=== PATIENT | female | born 1995 | race Caucasian/White ===

== ENCOUNTER → 2023-12-09 15:16 | Outpatient (CLI) | payer BC, SELFPAY ==
--- NOTE | 2023-12-09 15:19 | DI.US.S_ITS ---
PROCEDURE: US PELVIC COMPLETE INDICATIONS: PELVIC AND PERINEAL PAIN TECHNIQUE: Real-time scanning was performed of the pelvic organs, with image documentation. Additional endovaginal scanning was necessary due to incomplete visualization of the adnexal and endometrial structures by transabdominal scanning. COMPARISON: None. FINDINGS: Uterus: Uterus is anteverted and normal in size at 8 x 3.1 x 5 cm. The myometrium is homogeneous. The endometrium measures 3 mm combined thickness. Ovaries: The right ovary measures 1.4 x 3.9 x 1 1 cm, with a calculated ovarian volume of 3.2 cc. The left ovary measures 1.3 x 2.8 x 1.1 cm, with a calculated ovarian volume of 2.1 cc. The ovaries have a normal sonographic appearance. Less than 12 follicles can be seen in each ovary. No adnexal masses are seen. Normal appearing arterial waveforms are confirmed to each ovary. Other: No pathologic free abdominal or pelvic fluid. IMPRESSION: Pelvic ultrasound within normal limits, without a cause of the patient's presenting history. We strive to produce accurate, complete, and clear reports of imaging services. To assist us in improving patient care, this report was composed using standard report templates and voice recognition software. Therefore, it may contain abnormal punctuation, insertions and/or omissions. Occasional wrong-word or sound-alike substitutions may occur. Though we review the report and make efforts to correct it, we do recommend that the report be read carefully in proper context to recognize any text inaccuracies. Dictated by: Rohan Martínez M.D. on 12/09/2023 at 15:15 Approved by: Rohan Martínez M.D. on 12/09/2023 at 15:16
== END ==
LOC: US 15:18
PROVIDERS: PCP Family Medicine; Referring Provider Family Medicine; Visit Provider Family Medicine
DX: R10.2 Pelvic and perineal pain (principal)
CPT/HCPCS: 76830; 76856